=== PATIENT | male | born 1990 | race Caucasian/White ===

== ENCOUNTER 2019-12-26 06:37 | Emergency (ER) | payer SELFPAY ==
[~2019-12-26] VITALS: Ht 167.6 cm; Wt 68.2 kg
[~2019-12-26 06:37] MED LIST: BUPR1FIL3 SL; BUPR75TA12 PO; HYDR-3686 PO; NICO-668 MM; TRAZ-251 PO
[2019-12-26] MEDS ORDERED: normal saline 1000ml 1,000 ML IV ONE (07:16)
[2019-12-26] MEDS ORDERED: normal saline 1000ML IV soln IVB ONE (07:20)
[2019-12-26 08:48] VITALS: BP 99/53
[2019-12-26] MEDS ORDERED: naloxone 0.4 mg/ml inj IV ONE (11:15)
== END 2019-12-26 11:39 | disposition home or self-care (01) ==
LOC: ER 06:38
DX: T40.601A Poisoning by unspecified narcotics, accidental (unintentional), initial encounter (principal); F15.10 Other stimulant abuse, uncomplicated; F11.10 Opioid abuse, uncomplicated; Z79.899 Other long term (current) drug therapy; Y92.89 Other specified places as the place of occurrence of the external cause
CPT/HCPCS: 93005; 99283; J7030; 99284

== ENCOUNTER 2020-03-24 03:17 | Emergency (ER) | payer MEDICAID ==
[~2020-03-24] VITALS: Ht 170.2 cm; Wt 63.6 kg
[2020-03-24] MEDS ORDERED: clindamycin 600mg/D5W 50ml 50 ML IV ONE (03:40)
[2020-03-24] MEDS ORDERED: normal saline 1000ML IV soln IV ONE (03:40)
[2020-03-24 04:05] LABS: BASOPHILS # (AUTO) 0.1 X10'3 (0-0.2); BASOPHILS % (AUTO) 0.9 % (0-1); EOSINOPHILS # (AUTO) 0.2 X10'3 (0-0.9); EOSINOPHILS % (AUTO) 1.6 % (0-6); HEMATOCRIT 38.1 % (42.0-52.0); HEMOGLOBIN 12.7 g/dl (14.0-17.9); LYMPHOCYTES # (AUTO) 3.4 X10'3 (1.1-4.8); LYMPHOCYTES % (AUTO) 29.3 % (21-51); MEAN CORPUSCULAR HEMOGLOBIN 27.7 PG (27.0-31.0); MEAN CORPUSCULAR HGB CONC 33.3 g/dL (33.0-36.5); MEAN PLATELET VOLUME 6.9 FL (7.4-10.4); MONOCYTES # (AUTO) 1.5 X10'3 (0-0.9); MONOCYTES % (AUTO) 12.5 % (2-12); NEUTROPHILS # (AUTO) 6.5 X10'3 (1.8-7.7); NEUTROPHILS % (AUTO) 55.7 % (42-75); PLATELET COUNT 325 X10'3 (140-440); RED CELL DISTRIBUTION WIDTH 13.7 % (11.5-14.5); WHITE BLOOD COUNT 11.7 X10'3 (4.5-11.0)
[2020-03-24 04:07] LABS: PARTIAL THROMBOPLASTIN TIME 28 SECONDS (22-32)
[2020-03-24 04:10] LABS: ALANINE AMINOTRANSFERASE 80 U/L (12-78); ALBUMIN 3.2 G/DL (3.4-5.0); ALBUMIN/GLOBULIN RATIO 0.9 (1.1-1.5); ALKALINE PHOSPHATASE 85 IU/L (46-116); ANION GAP 6 (8-16); ASPARTATE AMINO TRANSFERASE 53 U/L (10-37); BILIRUBIN,TOTAL 0.4 MG/DL (0.1-1.0); BLOOD UREA NITROGEN 13 MG/DL (7-18); BUN/CREATININE RATIO 12.3 (5.4-32.0); CALCIUM 8.5 MG/DL (8.5-10.1); CHLORIDE 107 MMOL/L (99-107); CREATININE 1.06 MG/DL (0.60-1.10); GLUCOSE 104 MG/DL (70-104); MAGNESIUM 2.2 MG/DL (1.5-2.4); SODIUM 141 MMOL/L (135-145); TOTAL CARBON DIOXIDE 28.4 MMOL/L (24-32); TOTAL PROTEIN 6.6 G/DL (6.4-8.2); eGFR 82 ML/MIN
[2020-03-24] MEDS ORDERED: CLIN150C8 PO (05:35)
[2020-03-24 05:52] VITALS: BP 103/46
[2020-03-24] MEDS ORDERED: LIDOcaine 1% W/epiNEPHrine 1:100,000 20ml vial ONE (08:00)
== END 2020-03-24 05:54 | disposition home or self-care (01) ==
LOC: ER 03:18
DX: L02.413 Cutaneous abscess of right upper limb (principal); L02.414 Cutaneous abscess of left upper limb; L03.113 Cellulitis of right upper limb; L03.114 Cellulitis of left upper limb; F15.90 Other stimulant use, unspecified, uncomplicated; F11.90 Opioid use, unspecified, uncomplicated; R79.1 Abnormal coagulation profile; Z79.899 Other long term (current) drug therapy
CPT/HCPCS: 10061; 36415; 71045; 80053; 83605; 83735; 84145; 85025; 85610; 85730; 87040; 93005; 96365; 99285; J7030; J3490

== ENCOUNTER 2022-02-04 23:39 | Emergency (ER) | payer MEDICAID ==
[~2022-02-04] VITALS: Ht 170.2 cm; Wt 69.9 kg
[~2022-02-04 23:39] MED LIST changes: +BUPR-297 PO; -BUPR75TA12 PO; +CLIN150C8 PO
[2022-02-05 02:30] LABS: BASOPHILS # (AUTO) 0.1 X10'3 (0-0.2); BASOPHILS % (AUTO) 0.4 % (0-1); EOSINOPHILS # (AUTO) 0.1 X10'3 (0-0.9); EOSINOPHILS % (AUTO) 0.9 % (0-6); HEMATOCRIT 42.1 % (42.0-52.0); HEMOGLOBIN 14.2 g/dl (14.0-17.9); LYMPHOCYTES # (AUTO) 2.9 X10'3 (1.1-4.8); LYMPHOCYTES % (AUTO) 25.9 % (21-51); MEAN CORPUSCULAR HEMOGLOBIN 28.3 PG (27.0-31.0); MEAN CORPUSCULAR HGB CONC 33.8 g/dL (33.0-36.5); MEAN CORPUSCULAR VOLUME 83.6 FL (78-98); MONOCYTES # (AUTO) 1.2 X10'3 (0-0.9); MONOCYTES % (AUTO) 10.2 % (2-12); NEUTROPHILS # (AUTO) 7.1 X10'3 (1.8-7.7); NEUTROPHILS % (AUTO) 62.6 % (42-75); PLATELET COUNT 286 X10'3 (140-440); RED BLOOD COUNT 5.04 X10'6 (4.70-6.10); RED CELL DISTRIBUTION WIDTH 14.5 % (11.5-14.5); WHITE BLOOD COUNT 11.4 X10'3 (4.5-11.0)
[2022-02-05 02:45] LABS: ALANINE AMINOTRANSFERASE 67 U/L (12-78); ALBUMIN 3.6 G/DL (3.4-5.0); ALBUMIN/GLOBULIN RATIO 0.9 (1.1-1.5); ALKALINE PHOSPHATASE 80 IU/L (46-116); ANION GAP 5 (8-16); ASPARTATE AMINO TRANSFERASE 32 U/L (10-37); BILIRUBIN,TOTAL 0.3 MG/DL (0.1-1.0); BLOOD UREA NITROGEN 16 MG/DL (7-18); CALCIUM 8.9 MG/DL (8.5-10.1); CHLORIDE 102 MMOL/L (99-107); CREATININE 0.84 MG/DL (0.60-1.10); GLUCOSE 97 MG/DL (70-104); POTASSIUM 4.4 MMOL/L (3.5-5.1); SODIUM 138 MMOL/L (135-145); TOTAL CARBON DIOXIDE 30.9 MMOL/L (24-32); TOTAL PROTEIN 7.8 G/DL (6.4-8.2); eGFR > 90 ML/MIN
[2022-02-05 03:06] LABS: HIV ANTIBODY 1&2 RAPID NON-REACTIVE (Neg)
[2022-02-05] MEDS ORDERED: amox tr/potassium clavulanate 875/125mg TAB PO ONE (03:10)
[2022-02-05] MEDS ORDERED: AMOX-117 PO (03:10)
[2022-02-05 03:36] VITALS: BP 119/80
[2022-02-07 09:55] LABS: HBSAG SCREEN Negative (Negative); HEPATITIS C ANTIBODY >11.0 s/co ratio (0.0-0.9)
== END 2022-02-05 03:39 | disposition home or self-care (01) ==
LOC: ER 23:39
DX: L03.213 Periorbital cellulitis (principal); F15.90 Other stimulant use, unspecified, uncomplicated; F11.90 Opioid use, unspecified, uncomplicated; Z79.2 Long term (current) use of antibiotics; Z79.899 Other long term (current) drug therapy
CPT/HCPCS: 36415; 70486; 80053; 83605; 85025; 86703; 86706; 86803; 87340; 99284

== ENCOUNTER 2023-11-22 06:47 | Emergency (ER) | payer MEDICAID ==
[~2023-11-22] VITALS: Ht 170.2 cm; Wt 70.5 kg
[~2023-11-22 06:47] MED LIST changes: +CLIN-214 PO; -CLIN150C8 PO
[2023-11-22 07:38] LABS: BASOPHILS % (AUTO) 0.3 % (0-1); EOSINOPHILS # (AUTO) 0.1 X10'3 (0-0.9); EOSINOPHILS % (AUTO) 1.6 % (0-6); HEMATOCRIT 38.4 % (42.0-52.0); HEMOGLOBIN 12.8 g/dl (14.0-17.9); LYMPHOCYTES # (AUTO) 1.8 X10'3 (1.1-4.8); LYMPHOCYTES % (AUTO) 20.2 % (21-51); MEAN CORPUSCULAR HEMOGLOBIN 29.6 PG (27.0-31.0); MEAN CORPUSCULAR HGB CONC 33.4 g/dL (33.0-36.5); MEAN CORPUSCULAR VOLUME 88.6 FL (78-98); MEAN PLATELET VOLUME 7.3 FL (7.4-10.4); MONOCYTES # (AUTO) 1.1 X10'3 (0-0.9); MONOCYTES % (AUTO) 12.1 % (2-12); NEUTROPHILS # (AUTO) 5.9 X10'3 (1.8-7.7); NEUTROPHILS % (AUTO) 65.8 % (42-75); PLATELET COUNT 336 X10'3 (140-440); RED BLOOD COUNT 4.33 X10'6 (4.70-6.10); RED CELL DISTRIBUTION WIDTH 13.3 % (11.5-14.5)
[2023-11-22 07:52] LABS: ALANINE AMINOTRANSFERASE 66 U/L (12-78); ALBUMIN 3.1 G/DL (3.4-5.0); ALKALINE PHOSPHATASE 109 IU/L (46-116); ANION GAP 4 (8-16); ASPARTATE AMINO TRANSFERASE 57 U/L (10-37); BILIRUBIN,TOTAL 0.2 MG/DL (0.1-1.0); BLOOD UREA NITROGEN 13 MG/DL (7-18); BUN/CREATININE RATIO 14.6 (10.0-20.0); CALCIUM 7.6 MG/DL (8.5-10.1); CHLORIDE 107 MMOL/L (99-107); CREATININE 0.89 MG/DL (0.60-1.10); ETHANOL < 10 MG/DL (<10); GLUCOSE 122 MG/DL (70-104); POTASSIUM 3.9 MMOL/L (3.5-5.1); SALICYLATE 1.4 MG/DL (4.0-20.0); SODIUM 143 MMOL/L (135-145); TOTAL CARBON DIOXIDE 31.6 MMOL/L (24-32); TOTAL PROTEIN 6.2 G/DL (6.4-8.2); eCRCL 110 ML/MIN; eGFR > 90 ML/MIN
[2023-11-22 08:01] LABS: ACETAMINOPHEN < 2.0 UG/ML (10-30)
[2023-11-22 08:19] LABS: URINE AMPHETAMINE SCREEN POSITIVE (Neg); URINE BARBITUATE SCREEN NEGATIVE (Neg); URINE BENZODIAZEPINES SCREEN NEGATIVE (Neg); URINE CANNABINOID SCREEN NEGATIVE (Neg); URINE COCAINE SCREEN NEGATIVE (Neg); URINE METHADONE SCREEN NEGATIVE (Neg); URINE OPIATE SCREEN NEGATIVE (Neg); URINE PHENCYCLIDINE SCREEN NEGATIVE (Neg)
[2023-11-22 08:43] LABS: MAGNESIUM 2.1 MG/DL (1.5-2.4)
[2023-11-22] MEDS: LORazepam 2 mg/ml vial IV STA (08:55)
[2023-11-22] MEDS: normal saline 1000ml 1,000 ML IV ONE (08:55)
[2023-11-22 09:18] LABS: BILIRUBIN,URINE NEGATIVE (Neg); CLARITY,URINE CLEAR (Clear); COLOR,URINE YELLOW (Yellow); GLUCOSE, URINE NEGATIVE (Neg); KETONES,URINE NEGATIVE (Neg); LEUKOCYTE ESTERASE ,URINE NEGATIVE (Neg); NITRITES, URINE NEGATIVE (Neg); OCCULT BLOOD,URINE NEGATIVE (Neg); PROTEIN,URINE NEGATIVE (Neg); UROBILINOGEN,URINE 0.2 E.U/dL (0.2-1.0)
[2023-11-22 09:24] LABS: UA COLLECTION TYPE VOIDED
[2023-11-22] MEDS: haloperidol lactate 5mg/ml inj IM ONE (10:41)
[2023-11-22] MEDS: diphenhydrAMINE 50 mg/ml inj IV ONE (10:42)
[2023-11-22] MEDS: nicotine 21mg patch - 24 hr TD ONE (10:42)
[2023-11-22] MEDS: diazepam inj 5 MG/ML inj. IV STA (10:43)
[2023-11-22] MEDS ORDERED: NO HOME MEDS (15:53)
[2023-11-22 16:26] LABS: CREATINE KINASE 626 U/L (39-308)
[2023-11-22 22:08] LABS: THYROID STIMULATING HORMONE 2.47 ulU/ml (0.34-4.50)
[2023-11-22] MEDS: buprenorphine/naloxone 8MG-2MG SUBlingual film SL SCH (22:13)
[2023-11-23 04:57] VITALS: BP 115/70; PULSE 73; TEMP 97.9; O2SAT 97
[2023-11-23] MEDS: cephalexin 250mg capsule PO SCH (10:29)
[2023-11-23 10:54] VITALS: RESP 20
[2023-11-23] MEDS ORDERED: BUPR1FIL3 SL (12:18)
[2023-11-23] MEDS ORDERED: CEPH-585 PO (12:18)
== END 2023-11-23 13:26 | disposition home or self-care (01) ==
LOC: ER 06:48
DX: R45.88 Nonsuicidal self-harm (principal); Z20.822 Contact with and (suspected) exposure to COVID-19; T43.655A Adverse effect of methamphetamines, initial encounter; T40.415A Adverse effect of fentanyl or fentanyl analogs, initial encounter; F15.90 Other stimulant use, unspecified, uncomplicated; Z79.899 Other long term (current) drug therapy; Z79.2 Long term (current) use of antibiotics; Y92.89 Other specified places as the place of occurrence of the external cause
CPT/HCPCS: 36415; 71045; 80053; 80305; 80320; 80329; 81003; 82550; 83605; 83735; 84145; 84443; 85025; 87040; 87811; 93005; 96361; 96372; 96374; 96375; 99285; J1200; J1630; J3360; J7030; J2060